=== PATIENT | female | born 1960 | race Caucasian/White ===

== ENCOUNTER 2016-05-29 17:15 | Inpatient (IN) | payer MEDICAID ==
[~2016-05-29] VITALS: Ht 160 cm; Wt 74.4 kg
[2016-05-29] MEDS ORDERED: SODIUM CHLORIDE 0.9% 1,000 ML IV ONE (17:58)
[2016-05-29] MEDS ORDERED: FOLIC ACID 1 MG, THIAMINE HCL 100 MG, MVI, ADULT NO.1 10 ML in DEXTROSE 5% WATER 1,000 ML IV ONE ×4 (18:00)
[2016-05-29 18:21] LABS: BASOPHILS % 1.3 % (0.0-2.0); EOSINOPHILS % 0.8 % (0.0-5.0); HEMATOCRIT. 25.7 % (36.0-48.0); HEMOGLOBIN. 8.5 g/dL (12.0-16.0); LYMPHOCYTES % 36.5 % (20.0-50.0); MEAN CORPUSCULAR HEMOGLOBIN 32.9 pg (28.0-32.0); MEAN CORPUSCULAR HGB CONC 33.1 g/dL (31.0-37.0); MEAN CORPUSCULAR VOLUME 99.5 fL (81.0-99.0); MONOCYTES % 12.3 % (2.0-8.0); NEUTROPHILS % 49.1 % (40.0-76.0); PLATELET 61 x1000/uL (130-400); RED BLOOD CELL COUNT 2.59 mill/uL (4.2-5.4); RED CELL DISTRIBUTION WIDTH 17.2 % (11.6-14.6); WHITE BLOOD COUNT 3.1 x1000/uL (4.5-11.0)
[2016-05-29 18:26] LABS: CHLORIDE 117 mEq/L (98-107); INDEX HEMOLYSI 1 (1-3); INDEX ICTERIC 1 (1-4); INDEX LIPEMIC 1 (1-3)
[2016-05-29 18:35] LABS: ALANINE AMINOTRANSFERASE 27 IU/L (13-61); ALBUMIN 1.9 g/dL (3.4-5.0); ANION GAP 11; CALCIUM 7.8 mg/dL (8.5-10.1); CARBON DIOXIDE 25 mEq/L (21-32); UREA NITROGEN BLOOD 11 mg/dL (7-21); eGFR > 60 mL/min (>60)
[2016-05-29 18:37] LABS: ETHANOL BLOOD 300 mg/dL
[2016-05-29 18:38] LABS: AMMONIA 252 uMol/L (<32)
[2016-05-29 18:43] LABS: THYROID STIMULATING HORMONE 0.99 uIU/mL (0.36-3.74)
[2016-05-29] MEDS ORDERED: LACTULOSE 20G/30ML UDC PO ONE (19:00)
[2016-05-29] MEDS ORDERED: ONDANSETRON HCL 4MG/2ML VIAL IV PRN (19:30)
[2016-05-29] MEDS ORDERED: MAGNESIUM/ALUMINUM HYDROXIDE/SIMETHICONE 30ML UDC PO PRN (19:30)
[2016-05-29] MEDS ORDERED: IPRATROPIUM/ALBUTEROL 0.5-3(2.5)MG/3ML NEB INH PRN (19:30)
[2016-05-29 19:31] LABS: CLARITY URINE CLEAR (CLEAR); COLOR URINE YELLOW (YELLOW); GLUCOSE URINE NEGATIVE (NEGATIVE); KETONES URINE NEGATIVE (NEGATIVE); LEUKOCYTE ESTERASE URINE TRACE (NEGATIVE); NITRITE URINE NEGATIVE (NEGATIVE); OCCULT BLOOD URINE NEGATIVE (NEGATIVE); PROTEIN URINE NEGATIVE (NEGATIVE); SPECIFIC GRAVITY URINE 1.007 (1.005-1.030)
[2016-05-29 19:39] LABS: *AMPHETAMINES SCREEN URINE NEGATIVE (NEGATIVE); *BARBITURATES SCREEN URINE NEGATIVE (NEGATIVE); *BENZODIAZEPINES SCREEN URINE NEGATIVE (NEGATIVE); *COCAINE SCREEN URINE NEGATIVE (NEGATIVE); CANNABINOID URINE SCREEN NEGATIVE (NEGATIVE); ECSTASY MDMA SCREEN URINE NEGATIVE (NEGATIVE); METHADONE URINE SCREEN NEGATIVE (NEGATIVE); OPIATES URINE SCREEN NEGATIVE (NEGATIVE); PHENCYCLIDINE URINE SCREEN NEGATIVE (NEGATIVE)
[2016-05-29 19:56] LABS: MAGNESIUM 1.7 mg/dL (1.8-2.4)
[2016-05-29 20:01] LABS: BACTERIA URINE TRACE; RBC URINE NONE SEEN /hpf (0-2); SQUAMOUS EPITHELIAL CELL URINE RARE /lpf (RARE/1+); WBC URINE 0-2 /hpf (0-2)
[2016-05-29 21:25] VITALS: BP 134/52
[2016-05-29 22:00] VITALS: BP 134/44
[2016-05-29] MEDS: RIFAXIMIN 550 MG TABLET PO SCH (22:21)
[2016-05-29] MEDS: LACTULOSE 20G/30ML UDC PO SCH (22:21)
[2016-05-29] MEDS: CHLORDIAZEPOXIDE 25MG CAPSULE PO SCH (22:21)
[2016-05-29] MEDS: DEXT 5%/0.45% NACL 1000ML 1,000 ML IV SCH (23:13)
[2016-05-29 23:28] LABS: CREATINE KINASE MB FRACTION 0.8 ng/mL (0.5-3.6); TROPONIN I 0.04 ng/mL (0.00-0.04)
[2016-05-30] VITALS (17 sets, daily range): BP systolic 130–188; BP diastolic 41–80
[2016-05-30] MEDS: LACTULOSE 20G/30ML UDC PO SCH ×3 (06:31→21:10)
[2016-05-30] MEDS: CHLORDIAZEPOXIDE 25MG CAPSULE PO SCH ×3 (06:31→21:11)
[2016-05-30 06:37] LABS: BASOPHILS % 1.4 % (0.0-2.0); EOSINOPHILS % 0.6 % (0.0-5.0); HEMATOCRIT. 23.1 % (36.0-48.0); HEMOGLOBIN. 7.5 g/dL (12.0-16.0); LYMPHOCYTES % 27.4 % (20.0-50.0); MEAN CORPUSCULAR HEMOGLOBIN 32.2 pg (28.0-32.0); MEAN CORPUSCULAR HGB CONC 32.5 g/dL (31.0-37.0); MEAN CORPUSCULAR VOLUME 99.1 fL (81.0-99.0); MONOCYTES % 14.1 % (2.0-8.0); NEUTROPHILS % 56.5 % (40.0-76.0); PLATELET 55 x1000/uL (130-400); RED BLOOD CELL COUNT 2.33 mill/uL (4.2-5.4); WHITE BLOOD COUNT 2.9 x1000/uL (4.5-11.0)
[2016-05-30 07:18] LABS: CHLORIDE 119 mEq/L (98-107); INDEX HEMOLYSI 1 (1-3); INDEX ICTERIC 1 (1-4); INDEX LIPEMIC 1 (1-3)
[2016-05-30 07:28] LABS: AMMONIA 139 uMol/L (<32)
[2016-05-30 07:36] LABS: ALANINE AMINOTRANSFERASE 22 IU/L (13-61); ALBUMIN 1.6 g/dL (3.4-5.0); ANION GAP 13; CALCIUM 7.1 mg/dL (8.5-10.1); CARBON DIOXIDE 20 mEq/L (21-32); CREATINE KINASE 139 IU/L (26-192); CREATINE KINASE MB FRACTION 0.9 ng/mL (0.5-3.6); HDL CHOLESTEROL 41 mg/dL (40-59); LDL CHOLESTEROL 42 mg/dL (5-100); TRIGLYCERIDE 138 mg/dL (0-150); TROPONIN I 0.04 ng/mL (0.00-0.04); UREA NITROGEN BLOOD 9 mg/dL (7-21); eGFR > 60 mL/min (>60)
[2016-05-30] MEDS ORDERED: KCL 20MEQ/100ML PREMIX 100 ML IV NR (08:30)
[2016-05-30] MEDS: DEXT 5%/0.45% NACL 1000ML 1,000 ML IV SCH ×2 (09:17→18:54)
[2016-05-30] MEDS: FOLIC ACID 1MG TABLET PO SCH (09:18)
[2016-05-30] MEDS: MULTIVITAMINS,THER W-MINERALS TABLET PO SCH (09:18)
[2016-05-30] MEDS: THIAMINE HCL 100MG TABLET PO SCH (09:18)
[2016-05-30] MEDS: RIFAXIMIN 550 MG TABLET PO SCH ×2 (09:18→21:11)
[2016-05-30] MEDS ORDERED: CALCIUM CHLORIDE 1,000 MG in DEXT 5% WATER 90 ML IV NR (09:30)
[2016-05-30] MEDS ORDERED: MAGNESIUM 2 G PREMIX 50 ML IV NR (10:30)
[2016-05-30 12:38] LABS: HEPATITIS B SURFACE ANTIGEN NEGATIVE
[2016-05-30] MEDS: CLONIDINE 0.1MG TABLET PO PRN ×2 (12:39→18:54)
[2016-05-30] MEDS: LORAZEPAM 2MG/ML CPJ IV PRN (12:53)
[2016-05-30 13:06] LABS: HEPATITIS B CORE AB IGM NEGATIVE
[2016-05-30 13:08] LABS: HEPATITIS A AB IGM NEGATIVE (NEGATIVE)
[2016-05-30 13:14] LABS: HEPATITIS C VIR.AB > 11.00 INDEXVAL (0.00-0.80)
[2016-05-30] MEDS: PANTOPRAZOLE 80 MG in SODIUM CHLORIDE 0.9% 100 ML IV SCH ×2 (14:25→23:55)
[2016-05-30] MEDS: ACETAMINOPHEN 650MG/20.3ML UDC PO PRN (20:24)
[2016-05-31] VITALS (13 sets, daily range): BP systolic 132–178; BP diastolic 44–72
[2016-05-31] MEDS: ACETAMINOPHEN 650MG/20.3ML UDC PO PRN ×2 (00:51→20:15)
[2016-05-31] MEDS: CLONIDINE 0.1MG TABLET PO PRN ×2 (00:52→12:37)
[2016-05-31] MEDS: LORAZEPAM 2MG/ML CPJ IV PRN (02:18)
[2016-05-31 06:28] LABS: BASOPHILS % 0.4 % (0.0-2.0); HEMOGLOBIN. 9.9 g/dL (12.0-16.0); LYMPHOCYTES % 12.5 % (20.0-50.0); MEAN CORPUSCULAR HEMOGLOBIN 32.5 pg (28.0-32.0); MEAN CORPUSCULAR HGB CONC 32.9 g/dL (31.0-37.0); MEAN CORPUSCULAR VOLUME 98.9 fL (81.0-99.0); MONOCYTES % 11.4 % (2.0-8.0); NEUTROPHILS % 75.7 % (40.0-76.0); PLATELET 54 x1000/uL (130-400); RED BLOOD CELL COUNT 3.04 mill/uL (4.2-5.4); RED CELL DISTRIBUTION WIDTH 17.3 % (11.6-14.6)
[2016-05-31] MEDS: CHLORDIAZEPOXIDE 25MG CAPSULE PO SCH ×3 (06:28→21:34)
[2016-05-31] MEDS: LACTULOSE 20G/30ML UDC PO SCH ×3 (06:28→21:34)
[2016-05-31 06:30] LABS: AMMONIA 121 uMol/L (<32); INDEX HEMOLYSI 1 (1-3)
[2016-05-31] MEDS: DEXT 5%/0.45% NACL 1000ML 1,000 ML IV SCH ×3 (06:43→18:28)
[2016-05-31 07:11] LABS: ANION GAP 12; CALCIUM 8.2 mg/dL (8.5-10.1); CARBON DIOXIDE 20 mEq/L (21-32); CHLORIDE 118 mEq/L (98-107); INDEX HEMOLYSI 1 (1-3); INDEX ICTERIC 2 (1-4); INDEX LIPEMIC 1 (1-3); UREA NITROGEN BLOOD 9 mg/dL (7-21); eGFR > 60 mL/min (>60)
[2016-05-31] MEDS: THIAMINE HCL 100MG TABLET PO SCH (08:08)
[2016-05-31] MEDS: FOLIC ACID 1MG TABLET PO SCH (08:08)
[2016-05-31] MEDS: MULTIVITAMINS,THER W-MINERALS TABLET PO SCH (08:08)
[2016-05-31] MEDS: RIFAXIMIN 550 MG TABLET PO SCH ×2 (08:08→20:15)
[2016-05-31] MEDS: PANTOPRAZOLE 80 MG in SODIUM CHLORIDE 0.9% 100 ML IV SCH (09:48)
[2016-05-31] MEDS ORDERED: NIFEDIPINE XL 60MG TAB PO SCH (12:45)
[2016-05-31] MEDS: AMLODIPINE 10MG TABLET NG SCH (13:12)
[2016-05-31] MEDS ORDERED: PNEUMOCOCCAL 23-VAL P-SAC VAC 0.5 ML IM ONE (14:00)
[2016-05-31] MEDS ORDERED: POTASSIUM CHLORIDE INJ 40 MEQ in DEXT 5% WATER 250 ML IV SCH (14:00)
[2016-05-31] MEDS ORDERED: LACTULOSE 20G/30ML UDC PO NR (14:00)
[2016-05-31] MEDS ORDERED: INFLUENZA VIRUS VACCINE 0.5ML SYR IM ONE (14:00)
[2016-05-31 16:06] LABS: INR 1.7; PARTIAL THROMBOPLASTIN TIME 35.3 sec (24.0-34.0); PROTHROMBIN TIME 17.4 sec
[2016-05-31] MEDS: PANTOPRAZOLE SODIUM 40 MG/VIAL IV SCH (20:15)
[2016-06-01] VITALS (14 sets, daily range): BP systolic 138–168; BP diastolic 47–67
[2016-06-01] MEDS: DEXT 5%/0.45% NACL 1000ML 1,000 ML IV SCH ×2 (03:54→17:15)
[2016-06-01 05:38] LABS: HEMATOCRIT. 29.4 % (36.0-48.0); HEMOGLOBIN. 9.6 g/dL (12.0-16.0); MEAN CORPUSCULAR HEMOGLOBIN 32.2 pg (28.0-32.0); MEAN CORPUSCULAR HGB CONC 32.6 g/dL (31.0-37.0); MEAN CORPUSCULAR VOLUME 98.9 fL (81.0-99.0); MEAN PLATELET VOLUME 11.4 fl (7.4-10.4); PLATELET 69 x1000/uL (130-400); RED BLOOD CELL COUNT 2.97 mill/uL (4.2-5.4)
[2016-06-01 05:44] LABS: AMMONIA 87 uMol/L (<32)
[2016-06-01] MEDS: CHLORDIAZEPOXIDE 25MG CAPSULE PO SCH ×3 (05:46→21:07)
[2016-06-01] MEDS: LACTULOSE 20G/30ML UDC PO SCH ×4 (05:46→21:07)
[2016-06-01] MEDS: ACETAMINOPHEN 650MG/20.3ML UDC PO PRN (06:08)
[2016-06-01 06:30] LABS: ALANINE AMINOTRANSFERASE 17 IU/L (13-61); ALBUMIN 1.6 g/dL (3.4-5.0); ANION GAP 13; CALCIUM 7.8 mg/dL (8.5-10.1); CARBON DIOXIDE 19 mEq/L (21-32); CHLORIDE 119 mEq/L (98-107); INDEX HEMOLYSI 1 (1-3); INDEX ICTERIC 2 (1-4); INDEX LIPEMIC 1 (1-3); MAGNESIUM 1.9 mg/dL (1.8-2.4); UREA NITROGEN BLOOD 9 mg/dL (7-21); eGFR > 60 mL/min (>60)
[2016-06-01 06:57] LABS: DIFFERENTIAL COMMENT 1
[2016-06-01 07:26] LABS: INR 1.7; PROTHROMBIN TIME 17.7 sec
[2016-06-01] MEDS: THIAMINE HCL 100MG TABLET PO SCH ×2 (09:00→14:54)
[2016-06-01] MEDS: AMLODIPINE 10MG TABLET NG SCH ×2 (09:00→14:55)
[2016-06-01] MEDS: MULTIVITAMINS,THER W-MINERALS TABLET PO SCH ×2 (09:00→14:54)
[2016-06-01] MEDS ORDERED: POTASSIUM CHLORIDE INJ 40 MEQ in DEXT 5% WATER 250 ML IV ONE (09:00)
[2016-06-01] MEDS: RIFAXIMIN 550 MG TABLET PO SCH ×3 (09:00→20:40)
[2016-06-01] MEDS: FOLIC ACID 1MG TABLET PO SCH ×2 (09:00→14:54)
[2016-06-01] MEDS: PANTOPRAZOLE SODIUM 40 MG/VIAL IV SCH ×2 (09:05→20:40)
[2016-06-01 09:40] LABS: T3 FREE 0.96 pg/ml (2.18-3.98); T4 FREE 1.35 ng/dL (0.76-1.46); THYROID STIMULATING HORMONE 0.93 uIU/mL (0.36-3.74)
[2016-06-01 10:17] LABS: FOLIC ACID (FOLATE) SERUM 18.7 ng/mL (>5.38)
[2016-06-01] MEDS: CEFTRIAXONE 1 G PREMIX 50 ML IV SCH (14:53)
[2016-06-01] MEDS ORDERED: PHYTONADIONE 10MG/ML AMP SUBCUT NR (15:00)
[2016-06-01] MEDS ORDERED: POTASSIUM CHLORIDE 20MEQ TABLET SR PO NR (16:45)
[2016-06-01 17:19] LABS: PLATELET ESTIMATE DECREASED
[2016-06-01] MEDS ORDERED: LACTULOSE 20G/30ML UDC PO NR (18:00)
[2016-06-01] MEDS ORDERED: ADENOSINE 3 MG/ML 2ML VIAL IV ONE (19:32)
[2016-06-01] MEDS ORDERED: DIGOXIN 500MCG/2ML AMP IV NR (20:00)
[2016-06-01] MEDS ORDERED: ADENOSINE 6 MG/2ML SYRINGE IV NR (20:00)
[2016-06-01] MEDS: CLONIDINE 0.1MG TABLET PO PRN (23:32)
[2016-06-02] VITALS (14 sets, daily range): BP systolic 121–184; BP diastolic 36–66
[2016-06-02] MEDS: DEXT 5%/0.45% NACL 1000ML 1,000 ML IV SCH ×2 (04:56→16:56)
[2016-06-02] MEDS: CHLORDIAZEPOXIDE 25MG CAPSULE PO SCH ×3 (05:59→22:04)
[2016-06-02] MEDS: LACTULOSE 20G/30ML UDC PO SCH ×3 (05:59→21:23)
[2016-06-02 06:12] LABS: INR 1.8; PROTHROMBIN TIME 18.5 sec
[2016-06-02 06:25] LABS: AMMONIA 99 uMol/L (<32); INDEX HEMOLYSI 3 (1-3)
[2016-06-02] MEDS: AMLODIPINE 10MG TABLET NG SCH (09:00)
[2016-06-02] MEDS: MULTIVITAMINS,THER W-MINERALS TABLET PO SCH (09:00)
[2016-06-02] MEDS: RIFAXIMIN 550 MG TABLET PO SCH ×2 (09:00→21:26)
[2016-06-02] MEDS: FOLIC ACID 1MG TABLET PO SCH (09:00)
[2016-06-02] MEDS: THIAMINE HCL 100MG TABLET PO SCH (09:00)
[2016-06-02] MEDS: PANTOPRAZOLE SODIUM 40 MG/VIAL IV SCH ×2 (09:34→21:23)
[2016-06-02] MEDS ORDERED: SIMETHICONE 40 MG/0.6 ML 30ML ONE (13:25)
[2016-06-02] MEDS ORDERED: SODIUM CHLORIDE 0.9% 10ML VIAL ONE (13:25)
[2016-06-02] MEDS: CEFTRIAXONE 1 G PREMIX 50 ML IV SCH (14:14)
[2016-06-02] MEDS: CLONIDINE 0.1MG TABLET PO PRN (18:19)
[2016-06-02] MEDS: LORAZEPAM 2MG/ML CPJ IV PRN (18:58)
[2016-06-02] MEDS ORDERED: DIGOXIN 500MCG/2ML AMP IV NR (19:18)
[2016-06-02] MEDS ORDERED: CLONIDINE HCL 0.3MG/24HR PATCH TD SCH (21:00)
[2016-06-03] VITALS (12 sets, daily range): BP systolic 128–163; BP diastolic 42–60
[2016-06-03] MEDS: DEXT 5%/0.45% NACL 1000ML 1,000 ML IV SCH ×2 (04:36→14:07)
[2016-06-03] MEDS: LACTULOSE 20G/30ML UDC PO SCH ×3 (05:08→21:38)
[2016-06-03] MEDS: CHLORDIAZEPOXIDE 25MG CAPSULE PO SCH ×3 (05:08→21:38)
[2016-06-03 06:38] LABS: INR 1.5
[2016-06-03 06:42] LABS: AMMONIA 45 uMol/L (<32); INDEX HEMOLYSI 1 (1-3)
[2016-06-03 06:47] LABS: HEMATOCRIT. 27.6 % (36.0-48.0); MEAN CORPUSCULAR HEMOGLOBIN 33.3 pg (28.0-32.0); MEAN CORPUSCULAR HGB CONC 32.5 g/dL (31.0-37.0); MEAN CORPUSCULAR VOLUME 102.3 fL (81.0-99.0); MEAN PLATELET VOLUME 11.1 fl (7.4-10.4); PLATELET 78 x1000/uL (130-400); RED CELL DISTRIBUTION WIDTH 16.4 % (11.6-14.6)
[2016-06-03 06:58] LABS: DIFFERENTIAL COMMENT 1
[2016-06-03 07:43] LABS: ANION GAP 11; CALCIUM 7.2 mg/dL (8.5-10.1); CARBON DIOXIDE 18 mEq/L (21-32); CHLORIDE 121 mEq/L (98-107); INDEX HEMOLYSI 1 (1-3); INDEX ICTERIC 1 (1-4); INDEX LIPEMIC 1 (1-3); UREA NITROGEN BLOOD 12 mg/dL (7-21); eGFR > 60 mL/min (>60)
[2016-06-03] MEDS ORDERED: DEXT 5%/0.45% NACL KCL 40MEQ/L 1,000 ML IV ONE (08:15)
[2016-06-03] MEDS: AMLODIPINE 10MG TABLET NG SCH ×2 (09:00→10:26)
[2016-06-03] MEDS: MULTIVITAMINS,THER W-MINERALS TABLET PO SCH ×2 (09:00→10:26)
[2016-06-03] MEDS: FOLIC ACID 1MG TABLET PO SCH ×2 (09:00→10:25)
[2016-06-03] MEDS: RIFAXIMIN 550 MG TABLET PO SCH ×3 (09:00→21:38)
[2016-06-03] MEDS: THIAMINE HCL 100MG TABLET PO SCH ×2 (09:00→10:25)
[2016-06-03] MEDS: PANTOPRAZOLE SODIUM 40 MG/VIAL IV SCH ×2 (09:38→21:38)
[2016-06-03] MEDS ORDERED: POTASSIUM CHLORIDE INJ 40 MEQ in DEXT 5% WATER 500 ML IV NR (10:00)
[2016-06-03 10:17] LABS: ANISOCYTOSIS 1+; NUCLEATED RED BLOOD CELLS 2 /100 WBC; PLATELET ESTIMATE DECREASED
[2016-06-03] MEDS: CEFTRIAXONE 1 G PREMIX 50 ML IV SCH (13:40)
[2016-06-03] MEDS: ACETAMINOPHEN 650MG/20.3ML UDC PO PRN (23:10)
[2016-06-04] VITALS (18 sets, daily range): BP systolic 110–175; BP diastolic 35–82
[2016-06-04] MEDS: DEXT 5%/0.45% NACL 1000ML 1,000 ML IV SCH ×2 (02:58→15:07)
[2016-06-04] MEDS: LACTULOSE 20G/30ML UDC PO SCH ×3 (06:03→22:07)
[2016-06-04 06:17] LABS: AMMONIA 42 uMol/L (<32)
[2016-06-04] MEDS: PANTOPRAZOLE SODIUM 40 MG/VIAL IV SCH ×2 (09:16→20:44)
[2016-06-04] MEDS: MULTIVITAMINS,THER W-MINERALS TABLET PO SCH (09:16)
[2016-06-04] MEDS: FOLIC ACID 1MG TABLET PO SCH (09:16)
[2016-06-04] MEDS: RIFAXIMIN 550 MG TABLET PO SCH ×2 (09:16→20:44)
[2016-06-04] MEDS: AMLODIPINE 10MG TABLET NG SCH (09:16)
[2016-06-04] MEDS: THIAMINE HCL 100MG TABLET PO SCH (09:16)
[2016-06-04 10:01] LABS: DIFFERENTIAL COMMENT 1; HEMATOCRIT. 25.8 % (36.0-48.0); HEMOGLOBIN. 8.1 g/dL (12.0-16.0); MEAN CORPUSCULAR HEMOGLOBIN 33.2 pg (28.0-32.0); MEAN CORPUSCULAR HGB CONC 31.5 g/dL (31.0-37.0); MEAN CORPUSCULAR VOLUME 105.6 fL (81.0-99.0); MEAN PLATELET VOLUME 12.7 fl (7.4-10.4); PLATELET 63 x1000/uL (130-400); RED BLOOD CELL COUNT 2.44 mill/uL (4.2-5.4); RED CELL DISTRIBUTION WIDTH 17.5 % (11.6-14.6); WHITE BLOOD COUNT 6.5 x1000/uL (4.5-11.0)
[2016-06-04 10:13] LABS: ANION GAP 10; CALCIUM 7.4 mg/dL (8.5-10.1); CARBON DIOXIDE 17 mEq/L (21-32); CHLORIDE 125 mEq/L (98-107); INDEX HEMOLYSI 1 (1-3); INDEX ICTERIC 1 (1-4); INDEX LIPEMIC 1 (1-3); MAGNESIUM 1.9 mg/dL (1.8-2.4); UREA NITROGEN BLOOD 10 mg/dL (7-21); eGFR > 60 mL/min (>60)
[2016-06-04 11:35] LABS: ANISOCYTOSIS 1+; PLATELET ESTIMATE DECREASED
[2016-06-04] MEDS: POTASSIUM CHLORIDE 20 MEQ/PACKET NG SCH ×3 (12:11→23:46)
[2016-06-04] MEDS: CEFTRIAXONE 1 G PREMIX 50 ML IV SCH (14:16)
[2016-06-04] MEDS: CLONIDINE 0.1MG TABLET PO PRN (18:55)
[2016-06-05] VITALS (12 sets, daily range): BP systolic 106–134; BP diastolic 32–51
[2016-06-05] MEDS: POTASSIUM CHLORIDE 20 MEQ/PACKET NG SCH ×3 (05:10→21:11)
[2016-06-05] MEDS: DEXT 5%/0.45% NACL 1000ML 1,000 ML IV SCH ×2 (05:10→16:12)
[2016-06-05] MEDS: LACTULOSE 20G/30ML UDC PO SCH ×3 (05:10→21:10)
[2016-06-05 06:46] LABS: HEMATOCRIT. 31.2 % (36.0-48.0); MEAN CORPUSCULAR HGB CONC 32.2 g/dL (31.0-37.0); MEAN CORPUSCULAR VOLUME 102.4 fL (81.0-99.0); MEAN PLATELET VOLUME 11.8 fl (7.4-10.4); PLATELET 61 x1000/uL (130-400); RED BLOOD CELL COUNT 3.04 mill/uL (4.2-5.4); RED CELL DISTRIBUTION WIDTH 18.7 % (11.6-14.6); WHITE BLOOD COUNT 6.3 x1000/uL (4.5-11.0)
[2016-06-05 07:41] LABS: DIFFERENTIAL COMMENT 1
[2016-06-05 08:02] LABS: ANION GAP 12; CARBON DIOXIDE 15 mEq/L (21-32); CHLORIDE 127 mEq/L (98-107); INDEX HEMOLYSI 1 (1-3); INDEX ICTERIC 1 (1-4); INDEX LIPEMIC 1 (1-3); MAGNESIUM 1.8 mg/dL (1.8-2.4); UREA NITROGEN BLOOD 9 mg/dL (7-21)
[2016-06-05 08:04] LABS: eGFR > 60 mL/min (>60)
[2016-06-05] MEDS: RIFAXIMIN 550 MG TABLET PO SCH ×2 (08:28→21:11)
[2016-06-05] MEDS: FOLIC ACID 1MG TABLET PO SCH (08:28)
[2016-06-05] MEDS: AMLODIPINE 10MG TABLET NG SCH (08:28)
[2016-06-05] MEDS: MULTIVITAMINS,THER W-MINERALS TABLET PO SCH (08:28)
[2016-06-05] MEDS: PANTOPRAZOLE SODIUM 40 MG/VIAL IV SCH ×2 (08:28→21:11)
[2016-06-05] MEDS: THIAMINE HCL 100MG TABLET PO SCH (08:28)
[2016-06-05 08:36] LABS: AMMONIA 75 uMol/L (<32)
[2016-06-05 13:13] LABS: ANISOCYTOSIS 1+; PLATELET ESTIMATE DECREASED
[2016-06-05] MEDS: CEFTRIAXONE 1 G PREMIX 50 ML IV SCH (13:23)
[2016-06-05] MEDS: ACETAMINOPHEN 650MG/20.3ML UDC PO PRN (19:34)
[2016-06-06] VITALS (15 sets, daily range): BP systolic 101–131; BP diastolic 34–72
[2016-06-06] MEDS: LACTULOSE 20G/30ML UDC PO SCH ×3 (05:17→21:33)
[2016-06-06] MEDS: POTASSIUM CHLORIDE 20 MEQ/PACKET NG SCH ×3 (05:17→21:34)
[2016-06-06] MEDS: DEXT 5%/0.45% NACL 1000ML 1,000 ML IV SCH ×2 (05:17→15:24)
[2016-06-06 06:56] LABS: ALANINE AMINOTRANSFERASE 14 IU/L (13-61); ALBUMIN 1.3 g/dL (3.4-5.0); ANION GAP 10; CALCIUM 7.6 mg/dL (8.5-10.1); CARBON DIOXIDE 13 mEq/L (21-32); CHLORIDE 131 mEq/L (98-107); INDEX HEMOLYSI 1 (1-3); INDEX ICTERIC 1 (1-4); INDEX LIPEMIC 1 (1-3); UREA NITROGEN BLOOD 10 mg/dL (7-21); eGFR > 60 mL/min (>60)
[2016-06-06 07:01] LABS: AMMONIA 46 uMol/L (<32); INDEX HEMOLYSI 2 (1-3)
[2016-06-06 07:16] LABS: HEMATOCRIT. 32.7 % (36.0-48.0); HEMOGLOBIN. 10.2 g/dL (12.0-16.0); MEAN CORPUSCULAR HEMOGLOBIN 33.2 pg (28.0-32.0); MEAN CORPUSCULAR HGB CONC 31.1 g/dL (31.0-37.0); MEAN CORPUSCULAR VOLUME 106.9 fL (81.0-99.0); MEAN PLATELET VOLUME 12.3 fl (7.4-10.4); PLATELET 69 x1000/uL (130-400); RED BLOOD CELL COUNT 3.06 mill/uL (4.2-5.4); RED CELL DISTRIBUTION WIDTH 20.7 % (11.6-14.6); WHITE BLOOD COUNT 6.2 x1000/uL (4.5-11.0)
[2016-06-06 07:23] LABS: DIFFERENTIAL COMMENT 1
[2016-06-06] MEDS: THIAMINE HCL 100MG TABLET PO SCH (08:59)
[2016-06-06] MEDS: RIFAXIMIN 550 MG TABLET PO SCH ×2 (09:00→21:33)
[2016-06-06] MEDS: MULTIVITAMINS,THER W-MINERALS TABLET PO SCH (09:00)
[2016-06-06] MEDS: AMLODIPINE 10MG TABLET NG SCH (09:00)
[2016-06-06] MEDS: PANTOPRAZOLE SODIUM 40 MG/VIAL IV SCH ×2 (09:02→21:33)
[2016-06-06] MEDS: FOLIC ACID 1MG TABLET PO SCH (09:02)
[2016-06-06 13:16] LABS: ANISOCYTOSIS 1+; PLATELET ESTIMATE DECREASED
[2016-06-06] MEDS: CEFTRIAXONE 1 G PREMIX 50 ML IV SCH (15:23)
[2016-06-07] VITALS (12 sets, daily range): BP systolic 103–134; BP diastolic 34–50
[2016-06-07] MEDS: DEXT 5%/0.45% NACL 1000ML 1,000 ML IV SCH (04:08)
[2016-06-07] MEDS: LACTULOSE 20G/30ML UDC PO SCH ×3 (05:28→21:44)
[2016-06-07] MEDS: POTASSIUM CHLORIDE 20 MEQ/PACKET NG SCH ×3 (05:28→21:44)
[2016-06-07 06:48] LABS: HEMATOCRIT. 30.3 % (36.0-48.0); HEMOGLOBIN. 9.2 g/dL (12.0-16.0); MEAN CORPUSCULAR HEMOGLOBIN 32.7 pg (28.0-32.0); MEAN CORPUSCULAR HGB CONC 30.5 g/dL (31.0-37.0); MEAN CORPUSCULAR VOLUME 107.1 fL (81.0-99.0); MEAN PLATELET VOLUME 12.3 fl (7.4-10.4); PLATELET 72 x1000/uL (130-400); RED BLOOD CELL COUNT 2.83 mill/uL (4.2-5.4); RED CELL DISTRIBUTION WIDTH 19.9 % (11.6-14.6); WHITE BLOOD COUNT 6.4 x1000/uL (4.5-11.0)
[2016-06-07 07:26] LABS: ANION GAP 13; CALCIUM 8.2 mg/dL (8.5-10.1); CARBON DIOXIDE 13 mEq/L (21-32); CHLORIDE 132 mEq/L (98-107); INDEX HEMOLYSI 1 (1-3); INDEX ICTERIC 1 (1-4); INDEX LIPEMIC 1 (1-3); UREA NITROGEN BLOOD 8 mg/dL (7-21); eGFR > 60 mL/min (>60)
[2016-06-07 07:34] LABS: DIFFERENTIAL COMMENT 1
[2016-06-07] MEDS: AMLODIPINE 10MG TABLET NG SCH (08:38)
[2016-06-07] MEDS: FOLIC ACID 1MG TABLET PO SCH (08:48)
[2016-06-07] MEDS: PANTOPRAZOLE SODIUM 40 MG/VIAL IV SCH ×2 (08:48→21:44)
[2016-06-07] MEDS: RIFAXIMIN 550 MG TABLET PO SCH ×2 (08:48→21:43)
[2016-06-07] MEDS: THIAMINE HCL 100MG TABLET PO SCH (08:48)
[2016-06-07] MEDS: MULTIVITAMINS,THER W-MINERALS TABLET PO SCH (08:48)
[2016-06-07 13:16] LABS: PLATELET ESTIMATE SLIGHTLY DECREASED
[2016-06-07 13:17] LABS: ANISOCYTOSIS 1+
[2016-06-07] MEDS: CEFTRIAXONE 1 G PREMIX 50 ML IV SCH (14:24)
[2016-06-08] VITALS (10 sets, daily range): BP systolic 109–136; BP diastolic 39–68
[2016-06-08] MEDS: LACTULOSE 20G/30ML UDC PO SCH (05:00)
[2016-06-08] MEDS: POTASSIUM CHLORIDE 20 MEQ/PACKET NG SCH ×2 (05:01→13:43)
[2016-06-08 07:02] LABS: HEMATOCRIT. 31.2 % (36.0-48.0); MEAN CORPUSCULAR HEMOGLOBIN 32.3 pg (28.0-32.0); MEAN CORPUSCULAR HGB CONC 31.9 g/dL (31.0-37.0); MEAN CORPUSCULAR VOLUME 101.2 fL (81.0-99.0); MEAN PLATELET VOLUME 12.4 fl (7.4-10.4); PLATELET 88 x1000/uL (130-400); RED BLOOD CELL COUNT 3.08 mill/uL (4.2-5.4); RED CELL DISTRIBUTION WIDTH 18.8 % (11.6-14.6); WHITE BLOOD COUNT 6.1 x1000/uL (4.5-11.0)
[2016-06-08 07:14] LABS: DIFFERENTIAL COMMENT 1
[2016-06-08 07:48] LABS: ALANINE AMINOTRANSFERASE 15 IU/L (13-61); ALBUMIN 1.3 g/dL (3.4-5.0); ANION GAP 12; CALCIUM 8.2 mg/dL (8.5-10.1); CARBON DIOXIDE 14 mEq/L (21-32); CHLORIDE 125 mEq/L (98-107); INDEX HEMOLYSI 1 (1-3); INDEX ICTERIC 1 (1-4); INDEX LIPEMIC 1 (1-3); MAGNESIUM 1.5 mg/dL (1.8-2.4); UREA NITROGEN BLOOD 8 mg/dL (7-21); eGFR > 60 mL/min (>60)
[2016-06-08] MEDS: PANTOPRAZOLE SODIUM 40 MG/VIAL IV SCH (08:30)
[2016-06-08] MEDS: RIFAXIMIN 550 MG TABLET PO SCH (08:30)
[2016-06-08] MEDS: FOLIC ACID 1MG TABLET PO SCH (08:30)
[2016-06-08] MEDS: MULTIVITAMINS,THER W-MINERALS TABLET PO SCH (08:32)
[2016-06-08] MEDS: AMLODIPINE 10MG TABLET NG SCH (08:32)
[2016-06-08] MEDS: THIAMINE HCL 100MG TABLET PO SCH (08:33)
[2016-06-08] MEDS: CEFTRIAXONE 1 G PREMIX 50 ML IV SCH (13:43)
[2016-06-08] MEDS ORDERED: LACTULOSE 20G/30ML UDC PO SCH (14:00)
[2016-06-08 16:30] LABS: PLATELET ESTIMATE DECREASED
== END 2016-06-08 17:00 | DRG 775 ==
LOC: ER 17:16 → 5EST 19:34
PROVIDERS: ADMIT Internal Medicine; ATTEND Internal Medicine
PROC: 30233N1 Transfusion of Nonautologous Red Blood Cells into Peripheral Vein, Percutaneous Approach (ICD-10-PCS; principal; 2016-05-30)
PROC: 0DJ08ZZ Inspection of Upper Intestinal Tract, Via Natural or Artificial Opening Endoscopic (ICD-10-PCS; 2016-06-02)
DX: F10.229 Alcohol dependence with intoxication, unspecified (principal); F10.239 Alcohol dependence with withdrawal, unspecified; E43 Unspecified severe protein-calorie malnutrition; G92 Toxic encephalopathy; D61.818 Other pancytopenia; E87.0 Hyperosmolality and hypernatremia; I11.9 Hypertensive heart disease without heart failure; I85.00 Esophageal varices without bleeding; K92.2 Gastrointestinal hemorrhage, unspecified; C18.9 Malignant neoplasm of colon, unspecified; D53.9 Nutritional anemia, unspecified; N39.0 Urinary tract infection, site not specified; B19.20 Unspecified viral hepatitis C without hepatic coma; B18.2 Chronic viral hepatitis C; K72.90 Hepatic failure, unspecified without coma; Z91.19 Patient's noncompliance with other medical treatment and regimen; B96.20 Unspecified Escherichia coli [E. coli] as the cause of diseases classified elsewhere; F17.200 Nicotine dependence, unspecified, uncomplicated; I47.1 Supraventricular tachycardia; J40 Bronchitis, not specified as acute or chronic; K31.9 Disease of stomach and duodenum, unspecified; K44.9 Diaphragmatic hernia without obstruction or gangrene; K70.31 Alcoholic cirrhosis of liver with ascites; K76.6 Portal hypertension; N13.30 Unspecified hydronephrosis; Y90.8 Blood alcohol level of 240 mg/100 ml or more; Z90.710 Acquired absence of both cervix and uterus; Z68.29 Body mass index [BMI] 29.0-29.9, adult
CPT/HCPCS: 36415; 51702; 70450; 70551; 71010; 76700; 76705; 80048; 80053; 80061; 80305; 81001; 82140; 82270; 82550; 82553; 82607; 82746; 82962; 83036; 83735; 83880; 84132; 84155; 84439; 84443; 84460; 84481; 84484; 85025; 85610; 85730; 86705; 86709; 86803; 86850; 86900; 86920; 87040; 87077; 87086; 87186; 87340; 87536; 90686; 90732; 92610; 93005; 93306; 93880; 93970; 96374; 97162; 97530; 99285; A4216; C9113; G0482; J0153; J0696; J1160; J2060; J2405; J3411; J3430; J3475; J3480; J3490; J7030; J7040; J7042; J7050; J7060; J7070; P9016